=== PATIENT | female | born 1960 | race Caucasian/White ===

== ENCOUNTER 2022-01-20 09:15 | Inpatient (IN) | payer OTHER ==
[2022-01-20 09:55] LABS: Urine Blood Trace-lysed (Negative); Urine Glucose 2+ (Negative); Urine Protein 2+ (Negative)
[2022-01-20 10:04] LABS: Absolute Lymphocytes (CBC) 0.4 K/uL (0.7-4.9); Hematocrit 46.4 % (36.0-45.0); Lymphocytes % 3.5 % (15.3-44.8); MPV 7.7 fL (7.6-11.3); RBC Red Blood Cell Count 4.71 M/uL (3.86-4.86)
[2022-01-20] MEDS ORDERED: INSULIN -REGULAR HUMAN 50 UNIT/0.5 ML ML ONE (10:04)
[2022-01-20] MEDS ORDERED: NA CHLORIDE 0.9% 2,000 ML ONE (10:04)
[2022-01-20] MEDS ORDERED: ONDANSETRON 4 MG/2 ML VIAL ONE ×2 (10:04→16:00)
[2022-01-20] MEDS ORDERED: FAMOTIDINE 20 MG/2 ML VIAL IV ONE (10:05)
[2022-01-20 10:42] LABS: Urine Bacteria 20-50 /HPF (<20); Urine RBC <5 /HPF (NONE SEEN)
[2022-01-20 11:08] LABS: ALT/SGPT 26 U/L (12-78); AST/SGOT 16 U/L (15-37); Albumin 3.1 g/dL (3.4-5.0); Alkaline Phosphatase 130 U/L (45-117); BUN Blood Urea Nitrogen 39 mg/dL (7-18); Bilirubin Total 0.4 mg/dL (0.2-1.0); Glomerular Filtration Rate 36 ml/min (=/>90); Lipase 91 U/L (73-393); Magnesium 2.3 mg/dL (1.8-2.4); Protein, Total 7.3 g/dL (6.4-8.2); Sodium Level 131 mmol/L (136-145)
[2022-01-20 11:09] LABS: Blood Morphology Comment NOT SEEN (NOT SEEN); Platelet Estimate ADEQ
[2022-01-20 11:10] LABS: Troponin High Sensitivity 163.4 pg/mL (<58.9)
[2022-01-20 11:11] LABS: Potassium 5.6 mmol/L (3.5-5.1)
[2022-01-20 11:12] LABS: Bicarbonate 9 mmol/L (21-32); Glucose Level 711 mg/dL (74-106)
[2022-01-20] MEDS ORDERED: INSULIN -REGULAR HUMAN 100 UNIT in NA CHLORIDE 0.9% 100 ML IV SCH ×2 (12:00→13:15)
--- NOTE | 2022-01-20 12:00 | RAD REPORT ---
EXAM DESCRIPTION: CT - Abdomen Pelvis W Contrast - 01/20/2022 11:47 am CLINICAL HISTORY: Abdominal pain/vomiting COMPARISON: none. TECHNIQUE: Computed axial tomography of the abdomen pelvis was obtained. 100 cc Isovue-300 was admin istered intravenously. Oral contrast was not requested which limits evaluation of bowel and appendix All CT scans are performed using dose optimization technique as appropriate and may include automated exposure control or mA/KV adjustment according to patient size. FINDINGS: The liver is mildly enlarged. Fatty liver. Multiple gallstones. Spleen, pancreas, adrenal and kidneys appear unremarkable. There is no evidence of diverticulitis. No adnexal mass. Air is present within bladder Calcified lung granulomas IMPRESSION: Mild hepatomegaly with fatty infiltration Cholelithiasis Air within the bladder can be normal if the patient has had recent instrumentation. If not then this may indicate infection
--- NOTE | 2022-01-20 12:42 | EDPHYS ---
Physician Documentation [facility] Name: Jayda Ellis Age: 61 yrs Sex: Female : 1960 Arrival Date: 01/20/2022 Time: 09:16 Bed 20 Private MD: ED Physician Mathew Worthington HPI: 01/20 09:45 This 61 yrs old Female presents to ER via Ambulatory with complaints of Low Blood cp Sugar, Nausea. 09:45 The patient or guardian reports hyperglycemia, that was potentially precipitated by no cp particular event. Onset: The symptoms/episode began/occurred 4 day(s) ago. Associated signs and symptoms: Pertinent positives: vomiting, Pertinent negatives: constipation, diarrhea. Current symptoms: In the emergency department the patient's symptoms are unchanged from the initial presentation, despite home interventions. Historical: - Allergies: 09:51 PENICILLINS; jd3 - Home Meds: 09:51 Novolin N Sub-Q [Active]; levothyroxine oral [Active]; jd3 - PMHx: 09:51 Hypothyroidism; Diabetes mellitus; jd3 - PSHx: 09:51 section; jd3 - Immunization history:: Adult Immunizations up to date, Client reports receiving the 2nd dose of the Covid vaccine. - Social history:: Smoking status: Patient reports the use of cigarette tobacco products, smokes one pack cigarettes per day. ROS: 09:50 Constitutional: Positive for poor PO intake, Negative for body aches, chills, fever. cp 09:50 Eyes: Negative for injury, pain, redness, and discharge. cp 09:50 ENT: Negative for drainage from ear(s), ear pain, sore throat, difficulty swallowing, difficulty handling secretions. 09:50 Cardiovascular: Negative for chest pain. 09:50 Respiratory: Negative for cough, shortness of breath, wheezing. 09:50 Abdomen/GI: Positive for vomiting, anorexia, Negative for abdominal pain, diarrhea, constipation, hematemesis. 09:50 Back: Negative for pain at rest, pain with movement. 09:50 : Negative for urinary symptoms. 09:50 Neuro: Negative for altered mental status, headache, weakness. 09:50 All other systems are negative. Exam: 09:55 Constitutional: The patient appears in no acute distress, alert, awake, cp non-diaphoretic, non-toxic, well developed, well nourished. 09:55 Head/Face: Normocephalic, atraumatic. cp 09:55 Eyes: Periorbital structures: appear normal, Pupils: equal, round, and reactive to light and accomodation, Extraocular movements: intact throughout, Conjunctiva: normal, no exudate, no injection, Sclera: no appreciated abnormality, Lids and lashes: appear normal, bilaterally. 09:55 ENT: External ear(s): are unremarkable, Nose: is normal, Mouth: Lips: moist, Oral mucosa: pink and intact, moist, Posterior pharynx: Airway: no evidence of obstruction, patent, Tonsils: are normal in appearance, swelling, is not appreciated, erythema, is not appreciated, exudate, is not appreciated. 09:55 Neck: ROM/movement: is normal, is supple, without pain, no range of motions limitations. 09:55 Chest/axilla: Inspection: normal, Palpation: is normal, no crepitus, no tenderness. 09:55 Cardiovascular: Rate: normal, Rhythm: regular, Edema: is not appreciated, JVD: is not appreciated. 09:55 Respiratory: the patient does not display signs of respiratory distress, Respirations: normal, no use of accessory muscles, no retractions, labored breathing, is not present, Breath sounds: are clear throughout, no decreased breath sounds, no stridor, no wheezing. 09:55 Abdomen/GI: Inspection: abdomen appears normal, Bowel sounds: active, all quadrants, Palpation: soft, in all quadrants, mild abdominal tenderness, in the epigastric area, rebound tenderness, is not appreciated, voluntary guarding, is not appreciated, involuntary guarding, is not appreciated. 09:55 Back: CVA tenderness, is absent. 09:55 Neuro: Orientation: to person, place \\T\\ time. Mentation: is normal, Cerebellar function: is grossly normal, Motor: moves all fours, strength is normal, Sensation: is normal. Vital Signs: 09:52 BP 130 / 58; Pulse 99; Resp 18 S; Temp 98.3(TE); Pulse Ox 99% on R/A; Weight 55.79 kg jd3 (R); Height 5 ft. 5 in. (165.10 cm) (R); Pain 5/10; 10:53 BP 130 / 64; Pulse 97; Resp 18 S; Pulse Ox 100% on R/A; jd3 11:55 BP 134 / 54; Pulse 91; Resp 16 S; Pulse Ox 99% on R/A; jd3 12:51 BP 136 / 59; Pulse 92; Resp 17 S; Pulse Ox 99% on R/A; jd3 14:13 BP 132 / 73; Pulse 90; Resp 16 S; Pulse Ox 99% on R/A; jd3 16:11 BP 138 / 66; Pulse 89; Resp 16 S; Pulse Ox 99% on R/A; jd3 09:52 Body Mass Index 20.47 (55.79 kg, 165.10 cm) jd3 MDM: 09:37 Patient medically screened. 12:34 Physician consultation: Franky Parkinson MD was called at 12:34, was contacted at 12:34, regarding consult, patient's condition, and will see patient in inpatient room, tomorrow. 12:40 Data reviewed: vital signs, nurses notes, lab test result(s), EKG, radiologic studies, cp CT scan. 12:40 Counseling: I had a detailed discussion with the patient and/or guardian regarding: the cp historical points, exam findings, and any diagnostic results supporting the discharge/admit diagnosis, lab results, the need for further work-up and treatment in the hospital. 01/20 09:34 Order name: Glucose, Ancillary Testing; Complete Time: 09:40 EDMS 01/20 09:37 Order name: CBC with Diff; Complete Time: 11:36 01/20 11:37 Interpretation: Normal except: HGB 15.1; HCT 46.4; JUANY% 92.6; LYM% 3.5; NEUT A 9.9; cp LYMA 0.4. 01/20 09:37 Order name: CMP 01/20 11:40 Interpretation: Normal except: NA 131; BUN 39; CRE 1.61; GFR 36; ALB 3.1; GLOB 4.2; A/G cp 0.7; K 5.6; CO2 9; ANION GAP 28.6; GLUC 711; ALK 130. 01/20 09:37 Order name: Lipase 01/20 09:37 Order name: Urine Microscopic Only; Complete Time: 11:36 01/20 11:39 Interpretation: Normal except: UBACT 20-50. 01/20 09:37 Order name: Ketone, Serum cp 01/20 09:41 Order name: Troponin High Sensitivity; Complete Time: 11:36 cp 01/20 11:40 Interpretation: Abnormal: Troponin HS 163.4. cp 01/20 09:41 Order name: Magnesium; Complete Time: 11:36 cp 01/20 09:55 Order name: Urine Dipstick-Ancillary; Complete Time: 10:17 EDMS 01/20 10:17 Interpretation: Normal except: UGLUC 2+; UKET 4+; UBLD Trace-lysed; UPROT 2+. cp 01/20 10:46 Order name: Urine Culture EDMS 01/20 11:09 Order name: Manual Differential; Complete Time: 11:36 EDMS 01/20 12:15 Order name: Procalcitonin 01/20 12:15 Order name: Lactate; Complete Time: 13:43 cp 01/20 12:15 Order name: Blood Culture Adult (2) cp 01/20 12:33 Order name: Glucose; Complete Time: 13:43 jd3 01/20 12:44 Order name: Glucose, Ancillary Testing; Complete Time: 13:43 EDMS 01/20 13:17 Order name: Osmolality, Serum EDMS 01/20 13:17 Order name: Basic Metabolic Panel EDMS 01/20 13:17 Order name: Basic Metabolic Panel EDMS 01/20 13:17 Order name: Basic Metabolic Panel EDMS 01/20 13:17 Order name: Basic Metabolic Panel EDMS 01/20 13:17 Order name: CBC with Automated Diff EDMS 01/20 13:17 Order name: CBC with Automated Diff EDMS 01/20 13:17 Order name: CBC with Automated Diff EDMS 01/20 13:17 Order name: CBC with Automated Diff EDMS 01/20 13:17 Order name: Comprehensive Metabolic Panel EDMS 01/20 13:17 Order name: Comprehensive Metabolic Panel EDMS 01/20 13:17 Order name: Comprehensive Metabolic Panel EDMS 01/20 13:17 Order name: Comprehensive Metabolic Panel EDMS 01/20 13:17 Order name: Comprehensive Metabolic Panel EDMS 01/20 10:18 Order name: CT Abd/Pelvis - IV Contrast Only; Complete Time: 12:10 cp 01/20 14:31 Interpretation: Report reviewed. 01/20 13:17 Order name: Comprehensive Metabolic Panel EDMS 01/20 13:17 Order name: Lipid Profile EDMS 01/20 13:17 Order name: Lipid Profile EDMS 01/20 13:17 Order name: Magnesium EDMS 01/20 13:17 Order name: Magnesium EDMS 01/20 13:17 Order name: Magnesium EDMS 01/20 13:17 Order name: Magnesium EDMS 01/20 13:17 Order name: Phosphorus EDMS 01/20 13:17 Order name: Phosphorus EDMS 01/20 13:17 Order name: Phosphorus EDMS 01/20 13:17 Order name: Phosphorus EDMS 01/20 13:17 Order name: Troponin High Sensitivity EDMS 01/20 13:17 Order name: Troponin High Sensitivity EDMS 01/20 13:17 Order name: Troponin High Sensitivity EDMS 01/20 13:17 Order name: Troponin High Sensitivity EDMS 01/20 13:23 Order name: Glucose; Complete Time: 14:29 jd3 01/20 14:30 Interpretation: Abnormal: GLUC 509. cp 01/20 13:35 Order name: Glucose, Ancillary Testing; Complete Time: 13:43 EDGA 01/20 13:56 Order name: COVID-19 SARS RT PCR (Document "Date of Onset" if Symptomatic) kj1 01/20 14:44 Order name: Glucose, Ancillary Testing EDGA 01/20 15:51 Order name: Magnesium EDGA 01/20 15:59 Order name: Glucose, Ancillary Testing EDGA 01/20 16:05 Order name: Thyroid Stimulating Hormone EDGA 01/20 16:17 Order name: SARS-COV-2 RT PCR EDGA 01/20 17:09 Order name: Glucose, Ancillary Testing EDGA 01/20 17:57 Order name: Glucose, Ancillary Testing EDGA 01/20 19:01 Order name: Glucose, Ancillary Testing EDGA 01/20 19:53 Order name: Blood Culture EDGA 01/20 20:13 Order name: Glucose, Ancillary Testing EDGA 01/20 21:35 Order name: Glucose, Ancillary Testing EDGA 01/20 23:34 Order name: Glucose, Ancillary Testing EDGA 01/21 00:18 Order name: Glucose, Ancillary Testing EDGA 01/20 09:37 Order name: Accucheck Blood Glucose; Complete Time: 09:44 cp 01/20 09:37 Order name: IV Saline Lock; Complete Time: 09:39 cp 01/20 09:37 Order name: Labs collected and sent; Complete Time: 09:39 cp 01/20 09:37 Order name: Urine Dipstick-Ancillary (obtain specimen); Complete Time: 10:18 cp 01/20 09:41 Order name: EKG; Complete Time: 09:42 cp 01/20 09:41 Order name: EKG - Nurse/Tech; Complete Time: 10:18 cp 01/20 12:15 Order name: US Abdomen Limited; Complete Time: 14:29 cp 01/20 12:15 Order name: NPO; Complete Time: 12:35 cp 01/20 13:17 Order name: CONS Physician Consult EDMS 01/20 13:17 Order name: NPO EDMS Administered Medications: 11:38 Discontinued: NS 0.9% 1000 ml IV at 1 bolus Per protocol; 1000 mL bolus cp 10:06 Drug: NS 0.9% 1000 ml Route: IV; Rate: 1 bolus; Site: right antecubital; jd3 12:59 Follow up: Response: No adverse reaction; IV Status: Order to discontinue infusion jd3 10:07 Drug: NS 0.9% 1000 ml Route: IV; Rate: 1 bolus; Site: right antecubital; jd3 12:59 Follow up: Response: No adverse reaction; IV Status: Completed infusion jd3 10:07 Drug: Pepcid (famotidine) 20 mg Route: IVP; Site: right antecubital; jd3 11:00 Follow up: Response: No adverse reaction jd3 10:07 Drug: Zofran (Ondansetron) 4 mg Route: IVP; Site: right antecubital; jd3 11:00 Follow up: Response: No adverse reaction jd3 10:08 Drug: Insulin Regular Human 10 units {Co-Signature: jl7 (Lisbeth Rodriguez RN).} Route: IVP; jd3 Site: right antecubital; 13:00 Follow up: Response: No adverse reaction jd3 11:50 Drug: NS 0.9% (30 ml/kg) 30 ml/kg Route: IV; Rate: bolus; Site: right antecubital; jd3 13:00 Follow up: Response: No adverse reaction; IV Status: Completed infusion jd3 12:37 Drug: Insulin Drip - (Insulin Regular Human 100 units, NS 0.9% 100 ml) {Co-Signature: jprincess bp (Elvis Hebert RN).} Route: IV; Rate: calculated rate; Site: right antecubital; 13:00 Follow up: Response: No adverse reaction; IV Status: Infusion continued upon admission jd3 12:48 Drug: Mefoxin (cefOXitin) 1 grams Route: IVPB; Infused Over: 30 mins; Site: left jd3 antecubital; 16:10 Follow up: Response: No adverse reaction; IV Status: Completed infusion jd3 12:49 Drug: metroNIDAZOLE 500 mg Volume: 100 ml; Route: IVPB; Infused Over: 30 mins; Site: jd3 left antecubital; 16:10 Follow up: Response: No adverse reaction; IV Status: Completed infusion jd3 14:39 Drug: Tylenol 650 mg Route: PO; jd3 16:10 Follow up: Response: No adverse reaction jd3 Disposition: 01/21 07:45 Co-signature as Attending Physician, Mathew Worthington MD I agree with the assessment and kdr plan of care. Disposition Summary: 01/20/22 12:41 Hospitalization Ordered Hospitalization Status: Inpatient Admission cp Provider: Zamzam Lee cp Condition: Stable cp Problem: new cp Symptoms: have improved cp Bed/Room Type: Standard cp Location: Telemetry/MedSurg (Inpatient)(01/20/22 23:44) Room Assignment: [facility](01/20/22 23:44) Diagnosis - Other cholelithiasis without obstruction cp - Nausea with vomiting, unspecified cp Forms: - Medication Reconciliation Form cp - SBAR form cp Signatures: Dispatcher [employer] EDMS Mathew Worthington MD MD kdr Artur Mtz PA PA cp Leona Grimm, LINDSEY RN Peng Owen RN RN jd3 Lisbeth Rodriguez RN jl7 Elvis Hebert RN bp Corrections: (The following items were deleted from the chart) 01/20 11:37 11:37 Normal except: NA 131; BUN 39; CRE 1.61; GFR 36. cp cp 11:38 11:37 Normal except: NA 131; BUN 39; CRE 1.61; GFR 36; ALB 3.1; GLOB 4.2. cp cp 11:40 11:38 Normal except: NA 131; BUN 39; CRE 1.61; GFR 36; ALB 3.1; GLOB 4.2; A/G 0.7; K cp 5.6; CO2 9; ANION GAP 28.6; GLUC 711. cp 22:28 12:41 cp cg 23:18 22:28 6- cg cg 23:44 12:41 Intensive Care Unit cp cg 23:44 23:18 cg cg
--- NOTE | 2022-01-20 12:42 | ER ---
Nurse's Notes [facility] Name: Jayda Ellis Age: 61 yrs Sex: Female : 1960 Arrival Date: 01/20/2022 Time: 09:16 Bed 20 Private MD: Diagnosis: Other cholelithiasis without obstruction;Nausea with vomiting, unspecified Presentation: 01/20 09:49 Chief complaint: Patient states: "I am having high blood sugar. I started on Saturday jd3 with diarrhea. then progressed to nausea and vomiting on Saturday. I have not been able to hold anything down for a couple of days.". Coronavirus screen: At this time, the client does not indicate any symptoms associated with coronavirus-19. Ebola Screen: No symptoms or risks identified at this time. Initial Sepsis Screen: Does the patient meet any 2 criteria? No. Patient's initial sepsis screen is negative. Does the patient have a suspected source of infection? No. Patient's initial sepsis screen is negative. Risk Assessment: Do you want to hurt yourself or someone else? Patient reports no desire to harm self or others. Onset of symptoms was January 17, 2022. 09:49 Method Of Arrival: Ambulatory jd3 09:49 Acuity: SCOTT 3 jd3 Historical: - Allergies: 09:51 PENICILLINS; jd3 - Home Meds: 09:51 Novolin N Sub-Q [Active]; levothyroxine oral [Active]; jd3 - PMHx: 09:51 Hypothyroidism; Diabetes mellitus; jd3 - PSHx: 09:51 section; jd3 - Immunization history:: Adult Immunizations up to date, Client reports receiving the 2nd dose of the Covid vaccine. - Social history:: Smoking status: Patient reports the use of cigarette tobacco products, smokes one pack cigarettes per day. Screenin:54 Abuse screen: Denies threats or abuse. Nutritional screening: No deficits noted. jd3 Tuberculosis screening: No symptoms or risk factors identified. Fall Risk IV access (20 points). Ambulatory Aid- None/Bed Rest/Nurse Assist (0 pts). Gait- Normal/Bed Rest/Wheelchair (0 pts) Mental Status- Oriented to own ability (0 pts). Total Parmar Fall Scale indicates No Risk (0-24 pts). Assessment: 09:52 General: Appears in no apparent distress. comfortable, Behavior is calm, cooperative, jd3 appropriate for age. Pain: Complains of pain in abdomen Quality of pain is described as aching. Neuro: Rivas Agitation-Sedation Scale (RASS): 0 - Alert and Calm Level of Consciousness is awake, alert, obeys commands, Oriented to person, place, time, situation. Cardiovascular: Denies chest pain, Capillary refill < 3 seconds Patient's skin is warm and dry. Respiratory: Airway is patent Respiratory effort is even, unlabored, Respiratory pattern is regular, symmetrical, Denies cough, shortness of breath. GI: Abdomen is flat, non-distended, Abd is soft and non tender X 4 quads. Reports diarrhea, nausea, vomiting. : No signs and/or symptoms were reported regarding the genitourinary system. EENT: No signs and/or symptoms were reported regarding the EENT system. Derm: Skin is intact, Skin is dry, Skin is normal, Skin temperature is warm. Musculoskeletal: Circulation, motion, and sensation intact. Range of motion: intact in all extremities. 10:53 Reassessment: Patient appears in no apparent distress at this time. Patient and/or jd3 family updated on plan of care and expected duration. Pain level reassessed. Patient is alert, oriented x 3, equal unlabored respirations, skin warm/dry/pink. 11:55 Reassessment: Patient appears in no apparent distress at this time. Patient and/or jd3 family updated on plan of care and expected duration. Pain level reassessed. Patient is alert, oriented x 3, equal unlabored respirations, skin warm/dry/pink. 12:51 Reassessment: Patient appears in no apparent distress at this time. Patient and/or jd3 family updated on plan of care and expected duration. Pain level reassessed. Patient is alert, oriented x 3, equal unlabored respirations, skin warm/dry/pink. 14:13 Reassessment: Patient appears in no apparent distress at this time. Patient and/or jd3 family updated on plan of care and expected duration. Pain level reassessed. Patient is alert, oriented x 3, equal unlabored respirations, skin warm/dry/pink. awaiting admission. 16:09 Reassessment: Patient appears in no apparent distress at this time. Patient and/or jd3 family updated on plan of care and expected duration. Pain level reassessed. Patient is alert, oriented x 3, equal unlabored respirations, skin warm/dry/pink. charting continued in [facility]. pt moved to ICU ER HOLD status. Vital Signs: 09:52 BP 130 / 58; Pulse 99; Resp 18 S; Temp 98.3(TE); Pulse Ox 99% on R/A; Weight 55.79 kg jd3 (R); Height 5 ft. 5 in. (165.10 cm) (R); Pain 5/10; 10:53 BP 130 / 64; Pulse 97; Resp 18 S; Pulse Ox 100% on R/A; jd3 11:55 BP 134 / 54; Pulse 91; Resp 16 S; Pulse Ox 99% on R/A; jd3 12:51 BP 136 / 59; Pulse 92; Resp 17 S; Pulse Ox 99% on R/A; jd3 14:13 BP 132 / 73; Pulse 90; Resp 16 S; Pulse Ox 99% on R/A; jd3 16:11 BP 138 / 66; Pulse 89; Resp 16 S; Pulse Ox 99% on R/A; jd3 09:52 Body Mass Index 20.47 (55.79 kg, 165.10 cm) jd3 ED Course: 09:16 Patient arrived in ED. am2 09:23 Artur Mtz PA is PHCP. cp 09:23 Mathew Worthington MD is Attending Physician. cp 09:24 Peng Owen, LINDSEY is Primary Nurse. jd3 09:25 Urine collected: clean catch specimen, clear. kj1 09:30 Initial lab(s) drawn, by wa, sent to lab. Inserted saline lock: 20 gauge in right kj1 antecubital area, using aseptic technique. Blood collected. 09:51 Triage completed. jd3 09:52 Arm band placed on. jd3 09:54 Patient has correct armband on for positive identification. Bed in low position. Call [facility] light in reach. Side rails up X 1. Adult w/ patient. Client placed on continuous cardiac and pulse oximetry monitoring. NIBP monitoring applied. feather shaper on. Pulse ox on. NIBP on. 11:49 CT Abd/Pelvis - IV Contrast Only In Process Unspecified. EDMS 11:56 EKG done, by ED staff, reviewed by Artur SUNSHINE. mb7 12:30 Inserted saline lock: 22 gauge in left antecubital area, using aseptic technique. Blood jd3 collected. 12:35 Lactate Sent. mb7 12:35 Blood Culture Adult (2) Sent. mb7 12:39 Zamzam Lee MD is Hospitalizing Provider. cp 13:17 US Abdomen Limited In Process Unspecified. EDMS 14:14 No provider procedures requiring assistance completed. Patient admitted, IV remains in jd3 place. Administered Medications: 11:38 Discontinued: NS 0.9% 1000 ml IV at 1 bolus Per protocol; 1000 mL bolus cp 10:06 Drug: NS 0.9% 1000 ml Route: IV; Rate: 1 bolus; Site: right antecubital; jd3 12:59 Follow up: Response: No adverse reaction; IV Status: Order to discontinue infusion jd3 10:07 Drug: NS 0.9% 1000 ml Route: IV; Rate: 1 bolus; Site: right antecubital; jd3 12:59 Follow up: Response: No adverse reaction; IV Status: Completed infusion jd3 10:07 Drug: Pepcid (famotidine) 20 mg Route: IVP; Site: right antecubital; jd3 11:00 Follow up: Response: No adverse reaction jd3 10:07 Drug: Zofran (Ondansetron) 4 mg Route: IVP; Site: right antecubital; jd3 11:00 Follow up: Response: No adverse reaction jd3 10:08 Drug: Insulin Regular Human 10 units {Co-Signature: jl7 (iLsbeth Rodriguez RN).} Route: IVP; jd3 Site: right antecubital; 13:00 Follow up: Response: No adverse reaction jd3 11:50 Drug: NS 0.9% (30 ml/kg) 30 ml/kg Route: IV; Rate: bolus; Site: right antecubital; jd3 13:00 Follow up: Response: No adverse reaction; IV Status: Completed infusion jd3 12:37 Drug: Insulin Drip - (Insulin Regular Human 100 units, NS 0.9% 100 ml) {Co-Signature: jd3 bp (Elvis Hebert RN).} Route: IV; Rate: calculated rate; Site: right antecubital; 13:00 Follow up: Response: No adverse reaction; IV Status: Infusion continued upon admission jd3 12:48 Drug: Mefoxin (cefOXitin) 1 grams Route: IVPB; Infused Over: 30 mins; Site: left jd3 antecubital; 16:10 Follow up: Response: No adverse reaction; IV Status: Completed infusion jd3 12:49 Drug: metroNIDAZOLE 500 mg Volume: 100 ml; Route: IVPB; Infused Over: 30 mins; Site: jd3 left antecubital; 16:10 Follow up: Response: No adverse reaction; IV Status: Completed infusion jd3 14:39 Drug: Tylenol 650 mg Route: PO; jd3 16:10 Follow up: Response: No adverse reaction jd3 Medication: 09:53 VIS not applicable for this client. jd3 Outcome: 12:41 Decision to Hospitalize by Provider. cp 16:09 Admitted to ER Hold. Please see [facility] for further documentation. jd3 16:09 Condition: stable 16:09 Instructed on the need for admit, Demonstrated understanding of instructions. 01/21 00:43 Patient left the ED. kd3 Signatures: Dispatcher [employer] EDMS Artur Mtz PA PA cp Carin Marcos am2 Peng Owen RN RN jd3 Maggy Larios kj1 Deanna Mazariegos RN RN kd3 Angelica Purcell mb7 Lisbeth Rodriguez RN jl7 Elvis Hebert RN bp Corrections: (The following items were deleted from the chart) 01/20 16:10 16:10 IV Status: Completed infusion jd3 jd3
[2022-01-20] MEDS ORDERED: METRONIDAZOLE 500mg IVPB 500 MG/100 ML BAG IV ONE (12:48)
[2022-01-20] MEDS ORDERED: NA CHLORIDE 0.9% 50 ML ONE (12:48)
[2022-01-20] MEDS ORDERED: CEFOXITIN SODIUM 1 GM/VIAL ONE (12:48)
[2022-01-20] MEDS ORDERED: MORPHINE 2 MG/ML SYR IV PRN (13:10)
[2022-01-20] MEDS ORDERED: ONDANSETRON 4 MG/2 ML VIAL IV PRN (13:10)
[2022-01-20] MEDS ORDERED: ALBUTEROL 2.5 MG/3 ML NEB SOL NEB PRN (13:10)
--- NOTE | 2022-01-20 13:24 | P.HP ---
Certification for Inpatient With expected LOS: <2 Midnights Patient will require the following post-hospital care: None Practitioner: I am a practitioner with admitting privileges, knowledge of patient current condition, hospital course, and medical plan of care. Services: Services provided to patient in accordance with Admission requirements found in Title 42 Section 412.3 of the Code of Federal Regulations Patient History Date of Service: 01/20/22 Reason for admission: Nausea and vomiting History of Present Illness: 61-year-old female with past medical history of insulin-dependent diabetes mellitus, hypertension, chronic tobacco use presented because of recurrent nausea and vomiting since the last 2 days. Patient states she has been having abdominal cramps but denies any diarrhea. She denies any chest pain, palpitation or shortness of breath. She states she has been taking NPH insulin 30 units every morning due to intermittent nocturnal hypoglycemia. Her last glucose check at home was in the 250s 1 week ago. On presentation in the ED she was noted with glucose greater than 700 with anion gap of 27. Acetone level is pending. She was also noted with elevated creatinine of 1.6 with potassium of 5.6. She has been admitted for DKA. Imaging studies with CT shows evidence of cholelithiasis but no gallbladder wall thickening. There was also air within th e urinary bladder. Urinalysis shows positive leukocyte esterase with WBCs. Initial EKG shows ST segment depression of 1 mm in the anterior lateral leads but repeat shows improvement in the ST segment depression. Cardiology has been consulted. Allergies Penicillins Allergy (Verified 01/20/22 13:49) UNK - Past Medical/Surgical History -: Hypertension -: Diabetes mellitus -: Hypothyroidism Past Surgical History: Patient denies surgical history -: section - Family History Family History: Reviewed- Non-Contributory - Social History Smoking Status: Light Tobacco smoker (1-9 cigarettes/day) Counseled patient to stop smoking for: less than 10 minutes Smoking therapy provided: Yes Patient receptive to therapy: Yes Alcohol use: No CD- Drugs: No Caffeine use: No Place of Residence: Home Review of Systems 10-point ROS is otherwise unremarkable Physical Examination - Physical Exam General: Alert, In no apparent distress, Oriented x3, Cooperative HEENT: Atraumatic, Normocephalic Neck: Supple, 2+ carotid pulse no bruit, JVD not distended Respiratory: Clear to auscultation bilaterally, Normal air movement Cardiovascular: Normal pulses, Regular rate/rhythm, Normal S1 S2 Gastrointestinal: Normal bowel sounds, Soft and benign, Non-distended, W/out succussion splash, No tenderness Musculoskeletal: No clubbing, No swelling Neurological: Normal gait, Normal speech, Normal strength at 5/5 x4 extr, Normal tone, Sensation intact, Cranial nerves 3-12 intact External genitalia: No edema, No lesions - Studies Laboratory Data (last 24 hrs) 01/20/22 09:37: Magnesium 2.3 01/20/22 09:37: Sodium 131 L, Potassium 5.6 H*, BUN 39 H, Creatinine 1.61 H, Glucose 711 H*, Total Bilirubin 0.4, AST 16, ALT 26, Alkaline Phosphatase 130 H, Lipase 91 01/20/22 09:37: WBC 10.7, Hgb 15.1 H, Hct 46.4 H, Plt Count 406 Assessment and Plan Plan to discharge in: 48 Hours - Advance Directives Does patient have a Living Will: No Does patient have a Durable POA for Healthcare: No - Code Status/Comfort Care Code Status: Full Code Physician Review: Patient Assessed, Agree with Above Assessment and Plan Physician Review Additional Text: CT abdomen/pelvics-CLINICAL HISTORY: Abdominal pain. COMPARISON: CT January 20, 2022 FINDINGS: Multiple small gallstones. Portions of the gallbladder wall are borderline thickened The biliary tree is normal caliber. IMPRESSION: Cholelithiasis Borderline gallbladder wall thickening Impression DKAtype I Cystitis without hematuria Elevated troponin Cholelithiasisasymptomatic Acute kidney injurylikely due to DKA Hyperkalemia History of hypothyroidism Plan We will admit to ICU Will initiate DKA protocol BMP Q4, glucose every hour until anion gap closes N.p.o. for now Start empirical antibiotics for cystitis Follow blood culture Serum lactic acid level, follow acetone level Monitor potassium level, expected to improve with insulin drip Elevated troponin may be due to demand ischemia, follow troponin trend Given mild EKG changes, will obtain cardiology consult Cholelithiasis, no surgical indication at this time, monitor Subcutaneous heparin for DVT prophylaxis Monitor renal function, nephrology team to follow Time Spent Managing Pts Care (In Minutes): 65
--- NOTE | 2022-01-20 13:53 | RAD REPORT ---
EXAM DESCRIPTION: US - Abdomen Exam Limited - 01/20/2022 1:15 pm CLINICAL HISTORY: Abdominal pain. COMPARISON: January 20, 2022 CT FINDINGS: Several gallstones. Largest measures 2.3 centimeters. The gallbladder wall is not thickened The biliary tree is normal caliber. IMPRESSION: Cholelithiasis without evidence of cholecystitis
[2022-01-20] MEDS ORDERED: NA CHLORIDE 0.9% 1,000 ML IV SCH (14:00)
[2022-01-20] MEDS: NACHLORIDE 0.45% 1,000 ML IV SCH ×3 (14:00→22:00)
[2022-01-20] MEDS: D5 0.45 NS 1,000 ML IV SCH ×2 (14:00→20:40)
[2022-01-20] MEDS ORDERED: ACETAMINOPHEN 325 MG TABLET ONE ×2 (14:42→23:24)
[2022-01-20 15:55] LABS: Potassium 4.6 mmol/L (3.5-5.1)
[2022-01-20] MEDS ORDERED: PIPER TAZO 3.375 GM in NA CHLORIDE 0.9% 100 ML IV SCH (17:00)
[2022-01-20 17:34] VITALS: BMI 20.5
[2022-01-20] MEDS ORDERED: Levofloxacin500mg IV 500 MG/100 ML BAG IV ONE (17:43)
[2022-01-20] MEDS ORDERED: ENOXAPARIN 60 MG/0.6 ML SQ ONE (17:44)
[2022-01-20] MEDS: Levofloxacin500mg IV 500 MG/100 ML BAG IV SCH (17:47)
[2022-01-20] MEDS: ENOXAPARIN 60 MG/0.6 ML SQ SCH (17:47)
[2022-01-20 20:40] LABS: Potassium 4.1 mmol/L (3.5-5.1)
[2022-01-20] MEDS ORDERED: HEPARIN 5000 UNIT/ML 1 ML VIAL SQ SCH (21:00)
[2022-01-20] MEDS ORDERED: GLUCAGON 1 MG/VIAL IM PRN (23:25)
[2022-01-20] MEDS: INSULIN 70/30 100 UNITS/ML SQ SCH (23:25)
[2022-01-20] MEDS ORDERED: D50W 25 GM/50 ML SYRINGE IV PRN (23:25)
[2022-01-20] MEDS: NA CHLORIDE 0.9% 1,000 ML IV SCH (23:45)
[2022-01-20] MEDS ORDERED: NA CHLORIDE 0.9% 1,000 ML ONE (23:46)
[2022-01-20] MEDS ORDERED: INSULIN 70/30 100 UNITS/ML SQ ONE (23:46)
[2022-01-20] MEDS ORDERED: D10W 125 ML IV PRN (23:51)
[2022-01-21 00:52] VITALS: O2SAT 99
[2022-01-21] MEDS: ENOXAPARIN 60 MG/0.6 ML SQ SCH ×2 (05:10→18:00)
[2022-01-21 06:05] LABS: Absolute Lymphocytes (CBC) 1.9 K/uL (0.7-4.9); Hematocrit 38.1 % (36.0-45.0); Lymphocytes % 12.8 % (15.3-44.8); MPV 6.9 fL (7.6-11.3); RBC Red Blood Cell Count 4.09 M/uL (3.86-4.86)
[2022-01-21 06:27] LABS: Albumin 2.5 g/dL (3.4-5.0); Bilirubin Total 0.1 mg/dL (0.2-1.0); Magnesium 1.8 mg/dL (1.8-2.4); Phosphorus 1.3 mg/dL (2.5-4.9); Protein, Total 5.6 g/dL (6.4-8.2)
[2022-01-21 06:29] LABS: Potassium 2.9 mmol/L (3.5-5.1)
[2022-01-21] MEDS: NA CHLORIDE 0.9% 1,000 ML IV SCH (06:37)
[2022-01-21] MEDS ORDERED: POTASSIUM PHOS IN 0.9 % NACL 15 MMOL/250 ML BAG IV ONE ×2 (06:43→06:45)
[2022-01-21] MEDS ORDERED: POTASSIUM PHOS 30 MM in NA CHLORIDE 0.9% 500 ML IV ONE (06:44)
[2022-01-21] MEDS: INSULIN -REGULAR HUMAN 50 UNIT/0.5 ML ML SQ SCH ×3 (07:30→17:02)
[2022-01-21] MEDS: INSULIN 70/30 100 UNITS/ML SQ SCH (07:30)
--- NOTE | 2022-01-21 07:38 | P.CNS ---
Date of Consult: 01/21/22 Reason for Consult: HARDEEP/ Electrolyte Abn/ Acidosis Requesting Physician: Zamzam Lee Chief Complaint: Nausea and vomiting History of Present Illness: 61-year-old female with past medical history of insulin-dependent diabetes mellitus, hypertension, chronic tobacco use presented because of recurrent nausea and vomiting since the last 2 days. Patient states she has been having abdominal cramps but denies any diarrhea. She denies any chest pain, palpitation or shortness of breath. She states she has been taking NPH insulin 30 units every morning due to intermittent nocturnal hypoglycemia. Her last glucose check at home was in the 250s 1 week ago. On presentation in the ED she was noted with glucose greater than 700 with anion gap of 27. Acetone level is pending. She was also noted with elevated creatinine of 1.6 with potassium of 5.6. She has been admitted for DKA. Imaging studies with CT shows evidence of cholelithiasis but no gallbladder wall thickening. There was also air within the urinary bladder. Urinalysis shows positive leukocyte esterase with WBCs. Initial EKG shows ST segment depression of 1 mm in the anterior lateral leads but repeat shows improvement in the ST segment depression. Cardiology has been consulted. Diagnosis: Other cholelithiasis without obstruction;Nausea with vomiting, unspecified Presentation: 01/20 09:49 Chief complaint: Patient states: "I am having high blood sugar. I started on Saturday jd3 with diarrhea. then progressed to nausea and vomiting on Saturday. I have not been able to hold anything down for a couple of days.". Coronavirus screen: At this time, the client does not indicate any symptoms associated with coronavirus-19. Ebola Screen: No symptoms or risks identified at this time. Initial Sepsis Screen: Does the patient meet any 2 criteria? No. Patient's initial sepsis screen is negative. Does the patient have a suspected source of infection? No. Patient's initial sepsis screen is negative. Risk Assessment: Do you want to hurt yourself or someone else? Patient re ports no desire to harm self or others. Onset of symptoms was January 17, 2022. 09:49 Method Of Arrival: Ambulatory Allergies Penicillins Allergy (Verified 01/20/22 13:49) UNK Home medications list reviewed: Yes Home Medications: Insulin NPH Hum/Reg Insulin Hm [Novolin 70-30 100 Unit/ml Vial] 1 dose SQ BID 05/28/22 Levothyroxine Sodium [Levothyroxine] 150 mcg PO DAILY 01/20/22 - Past Medical/Surgical History -: Hypertension -: Diabetes mellitus -: Hypothyroidism -: section - Social History Smoking Status: Current every day smoker Alcohol use: No CD- Drugs: No Caffeine use: No Place of Residence: Home Review of Systems 10-point ROS is otherwise unremarkable General: Weakness, Malaise Physical Examination Temp Pulse Resp BP Pulse Ox 97.0 F 72 15 102/52 L 97 01/21/22 04:00 01/21/22 04:00 01/21/22 04:00 01/21/22 04:00 01/21/22 04:00 General: In no apparent distress, Oriented x3, Cooperative HEENT: Atraumatic Neck: Supple Respiratory: Clear to auscultation bilaterally Cardiovascular: No edema, Regular rate/rhythm Gastrointestinal: Soft and benign, Non-distended Musculoskeletal: No clubbing, No contractures Integumentary: No rashes, No cyanosis Neurological: Normal speech Laboratory Data (last 24 hrs) 01/20/22 13:27: Glucose 509 H* 01/20/22 12:30: Glucose 560 H* 01/20/22 09:37: Magnesium 2.3 01/20/22 09:37: Sodium 131 L, Potassium 5.6 H*, BUN 39 H, Creatinine 1.61 H, Glucose 711 H*, Total Bilirubin 0.4, AST 16, ALT 26, Alkaline Phosphatase 130 H, Lipase 91 01/20/22 09:37: WBC 10.7, Hgb 15.1 H, Hct 46.4 H, Plt Count 406 Imagings Data: EXAM DESCRIPTION: US - Abdomen Exam Limited - 01/20/2022 1:15 pm CLINICAL HISTORY: Abdominal pain. COMPARISON: January 20, 2022 CT FINDINGS: Several gallstones. Largest measures 2.3 centimeters. The gallbladder wall is not thickened The biliary tree is normal caliber. IMPRESSION: Cholelithiasis without evidence of cholecystitis EXAM DESCRIPTION: CT - Abdomen Pelvis W Contrast - 01/20/2022 11:47 am CLINICAL HISTORY: Abdominal pain/vomiting COMPARISON: none. TECHNIQUE: Computed axial tomography of the abdomen pelvis was obtained. 100 cc Isovue-300 was administered intravenously. Oral contrast was not requested which limits evaluation of bowel and appendix All CT scans are performed using dose optimization technique as appropriate and may include automated exposure control or mA/KV adjustment according to patient size. FINDINGS: The liver is mildly enlarged. Fatty liver. Multiple gallstones. Spleen, pancreas, adrenal and kidneys appear unremarkable. There is no evidence of diverticulitis. No adnexal mass. Air is present within bladder Calcified lung granulomas IMPRESSION: Mild hepatomegaly with fatty infiltration Cholelithiasis Air within the bladder can be normal if the patient has had recent instrumentation. If not then this may indicate infection Conclusions/Impression: HARDEEP likely due to hypovolemia Proteinuria likely DM nephropathy -No NSAIDs -Continue IVF Hyponatremia -Continue aggressive IVF with NS Hypokalemia -Replete potassium AG Acidosis due to DKA -Aggressive IVF -Insulin gtt prn HypoPO4 -Replete PO4 HTN with CKD -Start Ramipril 2.5mg daily DM II with CKD & DKA -Aggressive IVF -Insulin gtt as needed -Aggressive scheduled insulin Moderate malnutrition -Advance diet as tolerated -Consider supplementation Thank you kindly for the consultation.
[2022-01-21] MEDS: KCL 20 MEQ/100 mL IVPB 20 MEQ/100 ML BAG IV SCH ×2 (08:12→11:23)
[2022-01-21] MEDS: POTASS/SODIUM PHOSPHATE 1 PKT POWD.PACK PO SCH ×3 (08:13→10:50)
[2022-01-21] MEDS ORDERED: MAGNESIUM SULFATE 1 gm IVPB 1 GM/100 ML BAG IV ONE (09:00)
[2022-01-21] MEDS ORDERED: ALBUTEROL 2.5 MG/3 ML NEB SOL NEB PRN (10:00)
[2022-01-21 10:50] LABS: Potassium 4.6 mmol/L (3.5-5.1)
--- NOTE | 2022-01-21 11:54 | P.PN ---
Subjective Date of Service: 01/21/22 Chief Complaint: Nausea and vomiting Subjective: No new changes (Status post hypoglycemic early this a.m. improved now DKA resolved Started on long-acting insulin twice daily yesterday night) Physical Examination - Vital Signs Temperature: 95.8 F Blood Pressure: 165/63 Pulse: 79 Respirations: 18 Pulse Ox (%): 97 - Studies Laboratory Data (last 24 hrs) 01/20/22 13:27: Glucose 509 H* 01/20/22 12:30: Glucose 560 H* Assessment And Plan Physician Review: Patient Assessed, Agree with Above Assessment and Plan Physician Review Additional Text: CT abdomen/pelvics-CLINICAL HISTORY: Abdominal pain. COMPARISON: CT January 20, 2022 FINDINGS: Multiple small gallstones. Portions of the gallbladder wall are borderline thickened The biliary tree is normal caliber. IMPRESSION: Cholelithiasis Borderline gallbladder wall thickening Impression DKAtype I Cystitis without hematuria Elevated troponin/non-STEMI Cholelithiasisasymptomatic Acute kidney injurylikely due to DKAresolved Hyperkalemiaresolved History of hypothyroidism Plan We will replete potassium today Replete phosphorus with K-Phos Reduce long-acting insulin NPH to 10 unit twice daily since recurrent nocturnal hypoglycemia Continue insulin sliding scale, switch to every 6 Elevated serum troponin trending down Cardiology consult obtained, follow-up plan Start low-dose aspirin Continue Levaquin for cystitis, follow urine culture Cholelithiasis, no surgical indication at this time, follow as outpatient Subcutaneous heparin for DVT prophylaxis Monitor renal function, nephrology team to follow Possible discharge later today if cleared by cardiology or in a.m. if no recurrent elevated troponin
--- NOTE | 2022-01-21 12:08 | CON ---
Date of Consultation: 01/21/2022 Reason For Consultation: Gallstones. History Of Present Illness: The patient is a 61-year-old female, who was admitted with DKA associate d with nausea and vomiting for the last 2 days with abdominal cramps but no diarrhea, constipation, o r blood per rectum. No dysuria or hematuria. No sore throat, runny nose, cough, headaches, or dizzi ness. No chest pain. No fever or chills. The patient on admission had glucose greater than 700 wit h anion gap 27. However, her gap normalized and then she was transferred to the floor and this morni ng actually she had hypoglycemia for which she had to be given D10. Currently glucose is controlled. The patient states that she does not have any abdominal pain. No postprandial pain. No history of postprandial pain in the past. The patient had a CT scan done in the emergency room which showed ch olelithiasis, but no gallbladder wall thickening and there was air within the urinary bladder. Review of Systems: Otherwise unremarkable. Past Medical History: Hypertension, diabetes, and hypothyroidism. Past Surgical History: . Allergies: INCLUDE PENICILLIN. Social History: The patient does smoke and was counseled. Drinks occasionally. Family History: Noncontributory. Physical Examination: Vital Signs: Significant for slightly elevated blood pressure 165/63, however the previous 1 was 102 /52 and her temperature is 95.8. Laboratory Data: Shows white count of 14.5 with a left shift. Chemistry done this morning shows glu cose to be 408. The patient's troponin was 364 earlier, this morning is down to 247 and prior to aury t it was 10.7. CT of the abdomen and pelvis reviewed and this shows mild enlargement of the liver, f atty infiltration, multiple gallstones, and no evidence of diverticulitis. Air is present within the bladder which may indicate infection. The patient's UA reviewed. It shows 20-50 bacteria, white ce lls less than 5. Esterase and nitrites are negative. Assessment: A 61-year-old female with diabetic ketoacidosis, an incidental finding of gallstones. A t this present time, the patient is asymptomatic from this. She does have an elevated troponin which should be addressed via Cardiology consult which is pending. There is no need for any surgical inte rvention at this time. Once the patient is medically managed for her issues, she can be discharged h ome and should she have any evidence of biliary colic in the future she can follow up with me in the office for an outpatient evaluation. Please re-consult surgery p.sameer SUTTON/RAZ Voice ID: [id number] Report ID: [id number]
[2022-01-21] MEDS ORDERED: ACETAMINOPHEN 325 MG TABLET PO PRN (13:47)
[2022-01-21] MEDS: Levofloxacin500mg IV 500 MG/100 ML BAG IV SCH (14:40)
[2022-01-21 16:24] VITALS: BP 105/54; TEMP 98.8
--- NOTE | 2022-01-21 16:24 | P.DS ---
Admission Date: 01/20/22 Discharge Date: 01/21/22 Disposition: ROUTINE DISCHARGE Reason for Admission: Nausea and vomiting Brief History of Present Illness: 61-year-old female with past medical history of insulin-dependent diabetes mellitus, hypertension, chronic tobacco use presented because of recurrent nausea and vomiting since the last 2 days. Patient states she has been having abdominal cramps but denies any diarrhea. She denies any chest pain, palp itation or shortness of breath. She states she has been taking NPH insulin 30 units every morning due to intermittent nocturnal hypoglycemia. Her last glucose check at home was in the 250s 1 week ago. On presentation in the ED she was noted with glucose greater than 700 with anion gap of 27. Acetone level is pending. She was also noted with elevated creatinine of 1.6 with potassium of 5.6. She has been admitted for DKA. Imaging studies with CT shows evidence of cholelithiasis but no gallbladder wall thickening. There was also air within the urinary bladder. Urinalysis shows positive leukocyte esterase with WBCs. Initial EKG shows ST segment depression of 1 mm in the anterior lateral leads but repeat shows improvement in the ST segment depression. Cardiology has been consulted. Hospital Course: Hospital course Patient with history of diabetes mellitus insulin-dependent follows with endocrinology, on every morning NPH insulin due to Nocturnal hypoglycemia presents to the hospital because nausea vomiting and abdominal cramps. She was noted with marked elevated glucose greater than 600 as well as large anion gap. She was admitted for DKA and started on insulin drip with quick resolution of her anion gap. She was later transitioned to NPH overnight with recurrent drop in glucose to the 30s early hours of the a.m. Scheduled insulin dose was reduced to 15 units every morning as well as 10 units q. at bedtime. During admission she was noted with positive UA suggestive of cystitis. Urine culture grew gram-negative rods. She was started on empirical antibiotics with Levaquin. She had elevation in creatinine with hyperkalemia on presentation which significantly improved with IV fluid. She had transient elevation in troponin from 163 to a peak of 900s before trending down to 240s now. She remained asymptomatic without any chest pain. There was no significant EKG changes. Cardiology was consulted and recommended outpatient stress test with echo. She will be discharged home today And to follow-up with Dr. Jacome in 1 to 2 weeks. Of note imaging studies shows cholelithiasis but with no evidence of cholecystitis. Patient was evaluated by general surgery and recommended outpatient follow-up - Physical Exam General: Alert, In no apparent distress, Oriented x3, Cooperative HEENT: Atraumatic, Normocephalic Neck: Supple, 2+ carotid pulse no bruit, JVD not distended Respiratory: Clear to auscultation bilaterally, Normal air movement Cardiovascular: Normal pulses, Regular rate/rhythm, Normal S1 S2 Gastrointestinal: Normal bowel sounds, Soft and benign, Non-distended, W/out succussion splash, No tenderness Musculoskeletal: No clubbing, No swelling Neurological: Normal gait, Normal speech, Normal strength at 5/5 x4 extr, Normal tone, Sensation intact, Cranial nerves 3-12 intact External genitalia: No edema, No lesions - Studies CT abdomen/pelvics-CLINICAL HISTORY: Abdominal pain. COMPARISON: CT January 20, 2022 FINDINGS: Multiple small gallstones. Portions of the gallbladder wall are borderline thickened The biliary tree is normal caliber. IMPRESSION: Cholelithiasis Borderline gallbladder wall thickening Impression DKAtype Iresolved Cystitis without hematuria Elevated troponintrending down Cholelithiasisasymptomatic Acute kidney injurylikely due to DKAresolved Hyperkalemiaresolved History of hypothyroidism-normal TSH at 0.39 Vital Signs/Physical Exam: Temp Pulse Resp BP Pulse Ox 98.6 F 81 18 114/56 L 100 01/21/22 12:00 01/21/22 12:00 01/21/22 12:00 01/21/22 12:00 01/21/22 12:00 Laboratory Data at Discharge: WBC 14.5 K/uL (4.3-10.9) H D 01/21/22 05:26 Hgb 13.1 g/dL (12.0-15.0) 01/21/22 05:26 Hct 38.1 % (36.0-45.0) D 01/21/22 05:26 Plt Count 378 K/uL (152-406) 01/21/22 05:26 Sodium 134 mmol/L (136-145) L 01/21/22 10:21 Potassium Cancelled 01/21/22 15:00 BUN 26 mg/dL (7-18) H 01/21/22 10:21 Creatinine 1.12 mg/dL (0.55-1.3) 01/21/22 10:21 Glucose 408 mg/dL (74-106) H* 01/21/22 10:21 Phosphorus 1.3 mg/dL (2.5-4.9) L 01/21/22 05:26 Magnesium 2.0 mg/dL (1.8-2.4) 01/21/22 15:13 Total Bilirubin 0.1 mg/dL (0.2-1.0) L 01/21/22 05:26 AST 26 U/L (15-37) 01/21/22 05:26 ALT 21 U/L (12-78) 01/21/22 05:26 Alkaline Phosphatase 89 U/L (45-117) 01/21/22 05:26 Triglycerides 144 mg/dL (<150) 01/21/22 05:26 Cholesterol 138 mg/dL (<200) 01/21/22 05:26 HDL Cholesterol 35 mg/dL (40-60) L 01/21/22 05:26 Cholesterol/HDL Ratio 3.94 01/21/22 05:26 Lipase 91 U/L (73-393) 01/20/22 09:37 Home Medications: Levothyroxine Sodium [Levothyroxine] 150 mcg PO DAILY 01/20/22 Insulin NPH Hum/Reg Insulin Hm [Novolin 70-30 100 Unit/ml Vial] 1 dose SQ BID #1 vial 01/21/22 Levofloxacin [Levaquin] 500 mg PO DAILY #7 tablet 01/21/22 ramipriL [Altace*] 2.5 mg PO DAILY #30 cap 01/21/22 New Medications: ramipriL [Altace*] 2.5 mg PO DAILY #30 cap Levofloxacin [Levaquin] 500 mg PO DAILY #7 tablet Insulin NPH Hum/Reg Insulin Hm [Novolin 70-30 100 Unit/ml Vial] 1 dose SQ BID #1 vial Followup: Ziyad Garcia MD [ACTIVE - CAN ADMIT] - 1-2 Weeks Marah Silva MD [Primary Care Provider] - Franyk Parkinson MD [ACTIVE - CAN ADMIT] - (in 3-4 weeks if abdominal pain ) Time spent managing pt's care (in minutes): 35
[2022-01-21] MEDS ORDERED: INSULIN 70/30 100 UNITS/ML SQ SCH (16:30)
--- NOTE | 2022-01-21 17:20 | CON ---
Date of Consultation: 01/21/2022 Reason For Consultation: Elevated troponin. History Of Present Illness: 61-year-old female with history of type 2 diabetes not very controlled, comes in with nausea, vomiting, abdominal cramps. Denies having any chest pain or shortness of breat h. She takes insulin for her diabetes. Sugar on presentation was above 700. She was in diabetic ke toacidosis. Denies having any chest pain or shortness of breath. The patient was extremely dehydrat ed on arrival. Past Medical History: Hypertension, diabetes, hypothyroidism. Medications: Refer to reconciliation sheet for detailed list. Allergies: PENICILLIN. Past Surgical History: section. Family History: No premature coronary artery disease or cancer. Social History: Smokes a pack per day for long time. Does not drink or use any drugs. Review of Systems: All systems reviewed and negative except mentioned in HPI. Physical Examination: Vital Signs: Temperature is 98.6, pulse 81, breathing at 18, blood pressure is 114/56, saturating 10 0% on room air. General: Pleasant, middle-aged female, in no apparent distress. Head and Neck: Pupils are equal and reactive to light. Intact eye movements. No JVD. No cervical lymphadenopathy. Neck is supple. Thyroid is not enlarged. Lungs: Clear to auscultation bilaterally. No rhonchi, rales, or crackles. No accessory muscle use. Heart: Regular rate and rhythm. No extra sounds. Abdomen: Soft, nontender. Bowel sounds positive. No organomegaly. No masses or hernia. No rigidi ty or rebound. Extremities: No edema, clubbing, cyanosis. Intact pulses. Skin: No rashes. Neurologic: Alert, awake, oriented x3. No acute focal deficits appreciated. Investigations: White blood cell count 14.5, hemoglobin 15.1, platelet count 378. Glucose 408 today . Creatinine is 1.12. Troponin 364, then 247, creatinine 0.9. The initial troponin was 710. Assessment And Recommendation: 1.Elevated troponin. The patient has significant risk factors for coronary artery disease. However , she does not have chest pain. This is likely demand ischemia, but I recommend an outpatient exerci se nuclear stress test and an echo which can be arranged once the patient is discharged. 2.Diabetes. control. Long discussion was made to follow low-calorie diet and medications and follow up with primary care physician on this matter. 3.Smoker. She was counseled in details. /RAZ Voice ID: [id number] Report ID: [id number]
--- NOTE | 2022-01-23 12:24 | EKG ---
Test Date: 2022-01-20 Test Time: 11:51:04 Floor Specialist: MB MEASUREMENT RESULTS: Intervals: Rate: 89 AK: 178 QRSD: 92 QT: 328 QTc: 399 [place]: P: 87 AK: 178 QRS: 88 T: 55 INTERPRETIVE STATEMENTS: Normal sinus rhythm Normal ECG No previous ECG available for comparison Electronically Signed On 01-23-22 12:17:23 CDT by Gagan Grady
== END 2022-01-21 18:00 | disposition home or self-care (01) | DRG 638 ==
LOC: ER 09:15 → ERHOLD 13:43 → 3RD-ICU 22:35 → 4TH 23:55
PROVIDERS: ADMIT Internal Medicine; ATTEND Internal Medicine
DX: E10.10 Type 1 diabetes mellitus with ketoacidosis without coma (principal); N17.9 Acute kidney failure, unspecified; E87.1 Hypo-osmolality and hyponatremia; N30.90 Cystitis, unspecified without hematuria; R77.8 Other specified abnormalities of plasma proteins; K80.20 Calculus of gallbladder without cholecystitis without obstruction; E87.5 Hyperkalemia; I10 Essential (primary) hypertension; E86.0 Dehydration; E87.6 Hypokalemia; Z88.0 Allergy status to penicillin; F17.210 Nicotine dependence, cigarettes, uncomplicated; Z79.4 Long term (current) use of insulin; Z20.822 Contact with and (suspected) exposure to COVID-19
CPT/HCPCS: 36415; 74177; 76705; 80048; 80053; 80061; 81003; 81015; 82010; 82947; 83036; 83605; 83690; 83735; 83930; 84100; 84145; 84443; 84484; 85025; 87040; 87077; 87086; 87088; 87186; 93005; 99285; J0694; J1650; J1815; J2405; J3475; J3480; J3490; J7030; Q9967; U0003